=== PATIENT | male | born 1985 | race African-American/Black ===

== ENCOUNTER 2020-04-18 13:16 | Emergency (ER) | payer SELFPAY ==
[~2020-04-18] VITALS: Ht 182.9 cm; Wt 102.3 kg
[2020-04-18 13:31] VITALS: BP 138/66
[2020-04-18 14:03] LABS: BASO # 0.1 x10^3/uL (0.0-0.2); BASO % 1 % (0-3); EOS # 0.3 x10^3/uL (0.0-0.7); EOS % 4 % (0-3); HEMOGLOBIN 12.5 g/dL (13.0-17.5); LYMPH # 1.3 x10^3/uL (1.0-4.8); LYMPH % 17 % (24-48); MEAN CORPUSCULAR HEMOGLOBIN 28 pg (25-35); MEAN CORPUSCULAR HGB CONC 32 g/dL (31-37); MEAN CORPUSCULAR VOLUME 88 fL (79-100); MONO # 0.7 x10^3/uL (0.0-1.1); MONO % 9 % (0-9); NEUT # 5.2 x10^3uL (1.8-7.7); NEUT % 69 % (31-73); PLATELET COUNT 228 x10^3/uL (140-400); RED BLOOD COUNT 4.43 x10^6/uL (4.30-5.70); RED CELL DISTRIBUTION WIDTH 14.2 % (11.5-14.5); WHITE BLOOD COUNT 7.6 x10^3/uL (4.0-11.0)
--- NOTE | 2020-04-18 14:06 | PHYS DOC ---
Past History Past Medical History: No Pertinent History Past Surgical History: Appendectomy, Other Additional Past Surgical Histo: hernia repair Alcohol Use: Rarely Social History Narrative: past marijuana use Adult General Chief Complaint Chief Complaint: LOWER EXTREMITY SWELLING HPI HPI Patient is a 35-year-old male presents emergency department complaining of bilateral lower extremity swelling for the past 3 days, patient states that he has noticed the swelling off and on for the past 2 to 3 years. Patient states he has not been medically evaluated nor treated for his lower extremity swelling. Patient denies any extremity pain, loss of sensation, numbness or tingling to his lower extremities. Patient denies any chest pains, denies cough or shortness of breath, chest congestion, rashes of his skin, denies fever or chills. Patient denies any problems urinating, denies any increased thirst or increased urination. Patient states he has not been around anyone with the COVID-19 virus or other illnesses that he is aware of. Patient denies anyone else living in his home having the same symptoms as he. Patient denies being a cigarette smoker, denies drinking alcohol, denies illicit drug use. Patient states that his mother of ovarian cancer, his father has a history of end- stage renal disease and requires hemodialysis, has a history of hypertension and heart disease. Patient reports he takes no prescription medications, has no allergies to medications or seasonal allergies, has a surgical history of an appendectomy approximately 10 to 12 years ago, had an inguinal hernia repair 2 years ago. Review of Systems Review of Systems 14 body systems of review of systems have been reviewed. See HPI for pertinent positives and negative responses, otherwise all other systems are negative, nonpertinent or noncontributory. Family History Family History Reports mother of ovarian cancer, father has a history of end-stage renal disease and requires hemodialysis, has history of hypertension, has history of heart disease. Current Medications Current Medications Patient denies taking current medications. Allergies Allergies Allergies Coded Allergies Type Severity Reaction Last Updated Verified No Known Drug Allergies 04/18/20 No Physical Exam Physical Exam Constitutional: Well developed, well nourished, no acute distress, non-toxic appearance. HENT: Normocephalic, atraumatic, bilateral external ears normal, oropharynx moist, no oral exudates, nose normal. Eyes: PERRLA, EOMI, conjunctiva normal, no discharge. Neck: Normal range of motion, no tenderness, supple, no stridor. Cardiovascular:Heart rate regular rhythm, no murmur, heart sounds S1-S2 auscultation. Lungs & Thorax: Bilateral breath sounds clear to auscultation all lung meehan. Abdomen: Bowel sounds normal, soft, no tenderness, no masses, no pulsatile masses. Skin: Warm, dry, no erythema, no rash. Back: No tenderness, no CVA tenderness. Extremities: No tenderness, no cyanosis, no clubbing, ROM intact, bilateral lower extremity edema from lower third of bilateral leg to ankle and top of foot 1+ pitting edema, 2+ pulses dorsalis pedis posterior tibial bilaterally. Distal cap refill less than 2 seconds. Skin intact, no weeping from skin appreciated. No loss of sensation. Neurovascular intact. Neurologic: Alert and oriented X 3, normal motor function, normal sensory function, no focal deficits noted. [] Psychologic: Affect normal, judgement normal, mood normal. [] Current Patient Data Vital Signs Vital Signs Date Time Temp Pulse Resp B/P (MAP) Pulse Ox O2 Delivery O2 Flow Rate FiO2 04/18/20 13:31 98.6 71 16 138/66 (90) 99 Room Air EKG EKG EKG performed at 1356 by house respiratory therapy staff, shows normal sinus rhythm without ectopy heart rate 67 bpm, MD interval 0.186, QTc interval 0.387, no acute STEMI, no ACS, no acute ischemia noted, EKG interpreted by ED attending physician Dr. Eladio Maravilla Radiology/Procedures Radiology/Procedures [] Heart Score Risk Factors: Risk Factors: DM, Current or recent (<one month) smoker, HTN, HLP, family history of CAD, obesity. Risk Scores: Risk Factors: DM, Current or recent (<one month) smoker, HTN, HLP, family history of CAD, obesity. Course & Med Decision Making Course & Med Decision Making Pertinent Labs and Imaging studies reviewed. (See chart for details) 35-year-old male vital signs reviewed, presents emergency department with complaints of bilateral lower extremity swelling, patient did state he has had this off and on for years, patient has a significant family history of heart disease and cancer, physical examination concerning for work-up considering cardiac disease, kidney disease, endocrine dysfunction. ER work-up initiated, chest x-ray, EKG, urine assay and serum labs pending at this time. Patient states he needs to leave the emergency department because he has other things he has to do, patient states that he just needs a follow-up doctor at this time, discussed with patient that the emergency room evaluation is not complete, patient would be leaving AGAINST MEDICAL ADVICE if he left at this time. Patient states that he cannot stay, patient states that he would return if anything alarming was to be found with his ER work-up. Patient states that he will follow-up with recommended family practice physicians as he does not have a primary care doctor at this time. Is of my opinion patient is alert and oriented x3, is able to make his own educated medical decisions. Reviewed with patient risk versus benefits of staying for complete emergency department medical evaluation versus leaving AGAINST MEDICAL ADVICE, patient gave verbal understanding of risk versus benefits, patient signed out AGAINST MEDICAL ADVICE. EKG was nonconcerning for STEMI, ACS, acute ischemia, patient did not give a urine sample prior to leaving AGAINST MEDICAL ADVICE, D-dimer was elevated concerning for possible venous thrombus, attempted to contact patient with phone number he left with registration, phone was busy at this time. Will attempt again soon. Contacted patient on telephone, discussed patient's abnormal labs and need to return for further evaluation and possibly start on a blood thinner. Discussed with patient risks versus benefits of coming in for further evaluation versus staying at home and not completing a complete emergency medical evaluation. Patient states that he lives in a longterm house and he cannot leave at this time. Patient patient states that he will come first thing in the morning to complete his evaluation. Dragon Disclaimer Dragon Disclaimer This electronic medical record was generated, in whole or in part, using a voice recognition dictation system. Departure Departure: Impression: Primary Impression: Left against medical advice Disposition: 07 AMA/ELOPED/LWBS Condition: STABLE Referrals: PCP,NO (PCP) Patient Instructions: Discharge Against Medical Advice Additional Instructions: We have discussed health concerns related to your leg swelling, you have elected not to stay for complete emergency evaluation, we have reviewed risks versus benefits of staying for medical evaluation versus leaving AGAINST MEDICAL ADVICE, you have elected to leave AGAINST MEDICAL ADVICE. Please return to the emergency department for worsening symptoms or further concerns. You have been given a list of family practice physicians to follow-up with, I encourage you to follow-up with a primary care physician soon. Patient does not wish to proceed with medical care recommended by Bill Sofia. Patient given information related to possible complications, up to and including , which could occur as a result of leaving the hospital at this time. Patient verbalizes understan ding of risks involved due to leaving against medical advice. Patient has singned AMA form. Patient/Caregiver given discharge instructions and they have confirmed that they understand the instructions. Patient ambulatory with steady gait. EMERGENCY DEPARTMENT GENERAL DISCHARGE INSTRUCTIONS Thank you for coming to [facility] (ED) today and trusting us with you care. We trust that you had a positivie experience in our Emergency Department. If you wish to speak to the department management, you may call the director at [phone]. YOUR FOLLOW UP INSTRUCTIONS ARE FOLLOWS: 1. Do you have a private Doctor? If you do not have a private doctor, please ask for a resource list of physicians or clinics that may be able to assist you with follow up care. 2. The Emergency Physician has interpreted your x-rays. The X-Ray specialist will also review them. If there is a change in the findings, you will be notified in 48 hours when at all possible. 3. A lab test or culture has been done, your results will be reviewed and you will be notified if you need a change in treatment. ADDITIONAL INSTRUCTIONS AND INFORMATION: 1. Your care today has been supervised by a physician who is specially trained in emergency care. Many problems require more than one evaluation for a complete diagnosis and treatment. We recommend that you schedule your follow up appointment as recommended to ensure complete treatment of you illness or injury. If you are unable to obtain follow up care and continue to have a problem, or if your condition worsens, we recommend that you return to the ED. 2. We are not able to safely determine your condition over the phone nor are we able to give sound medical advice over the phone. For these safety reasons, if you call for medical advice we will ask you to come to the ED for further evaluation. 3. If you have any questions regarding these discharge instructions please call the ED at [phone]. SAFETY INFORMATION: In the interest of safety, wellness, and injury prevention; we encourage you to wear your sealbelt, if you smoke; quite smoking, and we encourage family to use a protective helmet for bicycling and other sporting events that present an increased risk for head injury. IF YOUR SYMPTOMS WORSEN OR NEW SYMPTOMS DEVELOP, OR YOU HAVE CONCERNS ABOUT YOUR CONDITION; OR IF YOUR CONDITION WORSENS WHILE YOU ARE WAITING FOR YOUR FOLLOW UP APPOINTMENT; EITHER CONTACT YOUR PRIMARY CARE DOCTOR, THE PHYSICIAN WHOSE NAME AND NUMBER YOU WERE GIVEN, OR RETURN TO THE ED IMMEDIATELY. MANOLO AVILA APRN Apr 18, 2020 14:06
[2020-04-18 14:12] LABS: CALCIUM 9.3 mg/dL (8.5-10.1); CREATININE 1.2 mg/dL (0.7-1.3); GFR 82.9; POTASSIUM 3.8 mmol/L (3.5-5.1)
[2020-04-18 14:25] LABS: ALBUMIN 3.5 g/dL (3.4-5.0); ALBUMIN/GLOBULIN RATIO 1.2 (1.0-1.7); MAGNESIUM 1.7 mg/dL (1.8-2.4); PHOSPHORUS 4.3 mg/dL (2.6-4.7); TOTAL BILIRUBIN 0.1 mg/dL (0.2-1.0); TOTAL PROTEIN 6.5 g/dL (6.4-8.2)
--- NOTE | 2020-04-18 14:48 | RAD ---
Exam performed: 2 views of the chest. Indication: Reason: EXTREMETY EDEMA / Spl. Instructions: / History: Date of Service: 04/18/2020 1:55 PM . Comparison : None available Findings: PA and lateral radiographs of the chest reveal a normal cardiomediastinal contour. Mild airspace opac ities are seen in the retrocardiac region seen on lateral projection. There is no pleural effusion or pneumothorax. The visualized osseous structures are unremarkable. Impression: Mild airspace opacities in the retrocardiac region seen on lateral projection consistent with retroca rdiac infiltrates. Electronically signed by: Mariia Dyer MD (04/18/2020 2:45 PM) [id number]
--- NOTE | 2020-04-20 09:50 | EKG ---
[address] [address] Test Date: 2020-04-18 Test Time: 13:56:34 Pat Name: WOODY NOBLES Department: Room: Gender: M [employer]: AUG[place] : 1985 Requested By: MANOLO AVILA Order Number: [id number] Reading MD: Measurements Intervals [place] Rate: 67 P: 26 IA: 186 QRS: 69 QRSD: 84 T: 33 QT: 364 QTc: 387 Interpretive Statements SINUS RHYTHM OTHERWISE NORMAL ECG RI6.02 No previous ECG available for comparison
== END 2020-04-18 14:15 | disposition left against medical advice (07) ==
LOC: ER 13:16 → EDBD 13:16 → ER 14:15
DX: R60.0 Localized edema (principal)
CPT/HCPCS: 36415; 71046; 80053; 82553; 83735; 83880; 84100; 84484; 85025; 85379; 93005; 99285

== ENCOUNTER 2020-04-19 10:21 | Emergency (ER) | payer SELFPAY ==
[~2020-04-19] VITALS: Ht 182.9 cm; Wt 101.3 kg
[2020-04-19 10:21] VITALS: BP 147/90
--- NOTE | 2020-04-19 11:08 | PHYS DOC ---
Past History Past Medical History: No Pertinent History Past Surgical History: Appendectomy, Other Additional Past Surgical Histo: hernia repair Alcohol Use: Rarely Adult General Chief Complaint Chief Complaint: LOWER EXTREMITY EDEMA HPI HPI Patient is a 35-year-old male presented to the emergency department for bilateral lower extremity swelling yesterday and ultimately left AGAINST MEDICAL ADVICE after initial work-up was done. After his initial work-up by the nurse practitioner on staff labs were obtained which did demonstrate elevation of D- dimer. The nurse practitioner then contacted the patient and recommended that he come to the emergency department to be evaluated for possible DVTs or pulmonary embolism. The patient states he is back here for this this morning. Denies any additional symptoms Review of Systems Review of Systems Constitutional: Denies fever or chills [] Eyes: Denies change in visual acuity, redness, or eye pain [] HENT: Denies nasal congestion or sore throat [] Respiratory: Denies cough or shortness of breath [] Cardiovascular: No additional information not addressed in HPI [] GI: Denies abdominal pain, nausea, vomiting, bloody stools or diarrhea [] : Denies dysuria or hematuria [] Musculoskeletal: Denies back pain or joint pain [] Integument: Denies rash or skin lesions [] Neurologic: Denies headache, focal weakness or sensory changes [] Endocrine: Denies polyuria or polydipsia [] All other systems were reviewed and found to be within normal limits, except as documented in this note. Allergies Allergies Allergies Coded Allergies Type Severity Reaction Last Updated Verified No Known Drug Allergies 04/18/20 No Physical Exam Physical Exam Constitutional: Well developed, well nourished, no acute distress, non-toxic appearance. [] HENT: Normocephalic, atraumatic, bilateral external ears normal, oropharynx moist, no oral exudates, nose normal. [] Eyes: PERRLA, EOMI, conjunctiva normal, no discharge. [] Neck: Normal range of motion, no tenderness, supple, no stridor. [] Cardiovascular:Heart rate regular rhythm, no murmur [] Lungs & Thorax: Bilateral breath sounds clear to auscultation [] Abdomen: Bowel sounds normal, soft, no tenderness, no masses, no pulsatile masses. [] Skin: Warm, dry, no erythema, no rash. [] Back: No tenderness, no CVA tenderness. [] Extremities: No tenderness, no cyanosis, no clubbing, ROM intact, no edema. [] Neurologic: Alert and oriented X 3, normal motor function, normal sensory function, no focal deficits noted. [] Psychologic: Affect normal, judgement normal, mood normal. [] EKG EKG [] Radiology/Procedures Radiology/Procedures [] Heart Score Risk Factors: Risk Factors: DM, Current or recent (<one month) smoker, HTN, HLP, family history of CAD, obesity. Risk Scores: Risk Factors: DM, Current or recent (<one month) smoker, HTN, HLP, family history of CAD, obesity. Course & Med Decision Making Course & Med Decision Making Pertinent Labs and Imaging studies reviewed. (See chart for details) 35-year-old male presenting to emergency department with follow-up from yesterday's visit. Will obtain lower extremity ultrasound to RE EVALUATE. 12:45 -ultrasound negative for any DVT. At this time will discharge the patient home with routine care Dragon Disclaimer Dragon Disclaimer This electronic medical record was generated, in whole or in part, using a voice recognition dictation system. Departure Departure: Impression: Primary Impression: Lower extremity edema Disposition: ADMITTED INPT THIS HOSP Condition: GOOD Referrals: PCP,NO (PCP) Patient Instructions: Edema, [id number] NORAH SILVA MD Apr 19, 2020 11:08
--- NOTE | 2020-04-19 12:27 | RAD ---
Bilateral Lower Extremity Venous Doppler: Reason for examination: Bilateral lower extremity pain and swelling. The lower extremity venous systems bilaterally were evaluated from the common femoral and greater sap henous veins distally to the calf veins with grayscale imaging, color-flow imaging and spectral dillon sis. There is normal blood flow without deep venous thrombosis. There is normal response of the venous sys tems to compression and augmentation. Incidental note was made of lymph nodes at the groin measuring up to 3.8 cm in size. Impression: No deep venous thrombosis in the lower extremity venous systems bilaterally. Lymph nodes in the groin bilaterally measuring up to 3.8 cm in size. Recommend clinical correlation. Electronically signed by: Lisette Pitts MD (04/19/2020 12:25 PM) [id number]
== END 2020-04-19 12:48 | disposition home or self-care (01) ==
LOC: ER 10:21
DX: R60.0 Localized edema (principal)
CPT/HCPCS: 93970; 99284